=== PATIENT | female | born 1965 | race Caucasian/White ===

== ENCOUNTER → 2024-06-15 | Outpatient (CLI) | payer BC ==
[2024-06-15 09:19] LABS: BASO % 0.6 % (0.0-1.0); EOS # 0.1 10^3/uL (0.0-0.5); EOS % 1.9 % (0.0-3.0); HEMATOCRIT 42.1 % (36.0-47.0); HEMOGLOBIN 13.6 g/dl (12.0-15.5); LYMPH # 2.1 10^3/uL (1.5-5.0); LYMPH % 32.1 % (24.0-44.0); MEAN CORPUSCULAR HEMOGLOBIN 27.9 pg (27.0-33.0); MEAN CORPUSCULAR HGB CONC 32.3 g/dl (32.0-36.5); MEAN CORPUSCULAR VOLUME 86.3 fl (80.0-96.0); MONO # 0.5 10^3/uL (0.0-0.8); MONO % 7.4 % (2.0-8.0); NEUTROPHILS # 3.7 10^3/uL (1.5-8.5); NEUTROPHILS % 57.5 % (36.0-66.0); PLATELET COUNT, AUTOMATED 268 10^3/uL (150-450); RED BLOOD COUNT 4.88 10^6/uL (4.00-5.40); WHITE BLOOD COUNT 6.4 10^3/uL (4.0-10.0)
[2024-06-15 10:01] LABS: ALKALINE PHOSPHATASE 96 U/L (46-116); ALT/SGPT 22 U/L (7.0-40); AST/SGOT 15 U/L (<34); BILIRUBIN,TOTAL 0.4 MG/DL (0.3-1.2); BLOOD UREA NITROGEN 15 MG/DL (9-23); CARBON DIOXIDE LEVEL 30 MMOL/L (20-31); CHLORIDE LEVEL 106 MMOL/L (98-107); CHOLESTEROL LEVEL 209 MG/DL (<200); CHOLESTEROL RISK RATIO 3.87 (<5); CREATININE FOR GFR 0.68 MG/DL (0.55-1.30); GLOMERULAR FILTRATION RATE > 60.0 (>51); GLUCOSE, FASTING 92 MG/DL (60-100); LDL CHOLESTEROL 131.6 MG/DL (<100); POTASSIUM SERUM 4.5 MMOL/L (3.5-5.1); SODIUM LEVEL 140 MMOL/L (136-145); TOTAL PROTEIN 7.8 G/DL (5.7-8.2); TRIGLYCERIDES LEVEL 117 MG/DL (<150)
[2024-06-15 10:12] LABS: THYROID STIMULATING HORMONE 1.842 uIU/ML (0.55-4.78)
[2024-06-15 10:13] LABS: FREE T4 1.13 NG/DL (0.89-1.76)
== END ==
LOC: M LAB 08:38
PROVIDERS: ATTEND Family Medicine
DX: Z13.0 Encounter for screening for diseases of the blood and blood-forming organs and certain disorders involving the immune mechanism (principal); Z13.29 Encounter for screening for other suspected endocrine disorder; E78.00 Pure hypercholesterolemia, unspecified

== ENCOUNTER → 2025-06-18 | Outpatient (CLI) | payer BC ==
[2025-06-18 10:39] LABS: BASO # 0.0 10^3/uL (0.0-0.2); BASO % 0.5 % (0.0-1.0); EOS # 0.2 10^3/uL (0.0-0.5); EOS % 3.9 % (0.0-3.0); LYMPH # 2.1 10^3/uL (1.5-5.0); LYMPH % 34.5 % (24.0-44.0); MONO # 0.5 10^3/uL (0.0-0.8); MONO % 7.6 % (2.0-8.0); NEUTROPHILS # 3.3 10^3/uL (1.5-8.5); NEUTROPHILS % 53.2 % (36.0-66.0); PLATELET COUNT, AUTOMATED 291 10^3/uL (150-450)
[2025-06-18 10:46] LABS: ALT/SGPT 23 U/L (7.0-40); AST/SGOT 23 U/L (<34); CALCIUM LEVEL 9.1 MG/DL (8.3-10.6); CARBON DIOXIDE LEVEL 27 MMOL/L (20-31); CHLORIDE LEVEL 103 MMOL/L (98-107); CHOLESTEROL LEVEL 194 MG/DL (<200); CHOLESTEROL RISK RATIO 3.10 (<5); CREATININE FOR GFR 0.65 MG/DL (0.55-1.30); FREE T4 1.03 NG/DL (0.89-1.76); GLOMERULAR FILTRATION RATE > 90.0 (>45); LDL CHOLESTEROL 113.8 MG/DL (<100); NON-HDL-C 131.6 MG/DL; POTASSIUM SERUM 4.1 MMOL/L (3.5-5.1); SODIUM LEVEL 139 MMOL/L (136-145); TRIGLYCERIDES LEVEL 89 MG/DL (<150)
== END ==
LOC: M PLALAB 07:38
PROVIDERS: ATTEND Family Medicine
DX: E78.00 Pure hypercholesterolemia, unspecified (principal); Z13.0 Encounter for screening for diseases of the blood and blood-forming organs and certain disorders involving the immune mechanism; Z13.29 Encounter for screening for other suspected endocrine disorder